=== PATIENT | female | born 1955 | race Caucasian/White ===

== ENCOUNTER 2019-12-30 10:08 | Emergency (ER) | payer OTHER, SELFPAY ==
--- NOTE | ~2019-12-30 | CT_ITS ---
EXAMINATION: CT brain wo con EXAM DATE: 12/30/2019 12:32 INDICATION: Numbness, weakness, lightheadedness. TECHNIQUE: Spiral CT of the head was performed without contrast. Axial, coronal and sagittal images were reviewed. The dose-length product (DLP) for this examination was 605.33 mGy-cm. The exposure w as tailored according to patient size, and iterative reconstruction (ASIR) was used as additional dos e reduction technique. There is no prior study for comparison. FINDINGS: There is no acute intraparenchymal hemorrhage. No evidence of intraparenchymal brain mass lesion. No evidence of acute infarction. Please note that initial head CT has limited sensitivity f or small or acute infarctions. There is mild periventricular and subcortical hypodensity, nonspecific but probably related to small vessel ischemic disease. There is mild prominence of the sulci and v entricles related to cerebral atrophy. There is intracranial carotid arteriosclerosis. There are n o extra-axial collections. There is no mass effect or midline shift. The orbits are unremarkable. Soft tissue is unremarkable. The visualized sinuses and mastoid air cells are well aerated. IMPRESSION: 1. No acute intracranial findings. 2. Chronic age related findings. Reviewed, dictated and finalized at location A. NEERING INSPECTOR
[2019-12-30 10:32] VITALS: BP 108/63; PULSE 76; RESP 18; TEMP 36.6; O2SAT 100
--- NOTE | 2019-12-30 12:20 | ECG_ITS ---
Measurements Intervals [place] Rate: 68 P: 33 WA: 179 QRS: -13 QRSD: 92 T: 22 QT: 421 QTc: 450 Interpretive Statements SINUS RHYTHM CANNOT RULE OUT SEPTAL INFARCT, AGE INDETERMINATE BASELINE ARTIFACT- I, II, III, AVR, AVL, AVF, V1-V2 ABNORMAL ECG Electronically Signed On 12-30-2019 14:48:08 WHEEL BRAIDER by Catrachito Calix D.O.
--- NOTE | 2019-12-30 12:31 | ED.DIZZY ---
HPI - Dizziness General Chief Complaint: Dizziness Stated Complaint: Weak, abd pain Time Seen by Provider: 12/30/19 12:18 Source: patient Mode of arrival: ambulatory Limitations: no limitations History of Present Illness HPI Narrative: The pt is a 64 y/o female who presents to the ED c/o dizziness onset today. Pt states that she was eating with her son when she went to bathroom. Then, when she sat down, she suddenly began to experience lower ABD cramping pain, diaphoresis, and feeling warm along with her dizziness. She notes that she had a similar episode a few years ago after having her medications completely changed. Pt states that her diaphoresis and feeling warm are resolved. Pt notes that her dizziness and ABD pain have improved, but her ABD pain has migrated to the epigastric ABD. Pt reports diarrhea, but denies fever, CP, hematuria, and dysuria. Pt notes that she had her Amlodipine cut in half by her PCP on 12/27/19, and had her water pill doubled. MD elicited complaint: dizziness Timing: sudden onset Severity: similar to previous episodes Context: change in medication (Doubled water pill, cut Amlodipine) History of similar symptoms: Yes Associated symptoms: diaphoresis (Resolved) and other (ABD pain (Lower cramping, now epigastric), Feeling warm (Resolved), Diarrhea) Related Data Allergies Allergy/AdvReac Type Severity Reaction Status Date / Time No Known Allergies Allergy Verified 12/30/19 10:34 Review of Systems Review of Systems: All systems reviewed & are unremarkable except as noted in HPI and below Constitutional: Constitutional: Reports excessive sweating (Resolved), Denies fever(s) and Reports other (Feeling warm (Resolved)) Cardiovascular: Cardiovascular: Denies chest pain Gastrointestinal: Gastrointestinal: Reports abdominal pain (Lower cramping initially, now epigastric) and Reports diarrhea Genitourinary: Genitourinary: Denies hematuria and Denies dysuria Neurologic: Reports dizziness PMFSH Past Medical History Medical History (Updated 12/30/19 @ 14:23 by Paco Mccoy MD) Arthritis Endometrial cancer Gall bladder disease GERD (gastroesophageal reflux disease) HLD (hyperlipidemia) HTN (hypertension) Rectal polyp Surgical History Surgical History (Updated 12/30/19 @ 13:05 by Madhav Lang) H/O hand surgery Reconstruction of fingers on the left hand H/O thumb surgery Right thumb H/O: hysterectomy History of cholecystectomy Social History Social History (Updated 12/30/19 @ 13:05 by Madhav Lang) Smoking status: Never smoker Gender identity (if verbalized by the patient): Female Exam Const: General: cooperative, healthy appearing, comfortable, no acute distress, well developed, alert and awake; No confusion Orientation/consciousness: oriented to person, oriented to place, oriented to time, patient oriented x3 and No confusion Limitations: no limitations Resp: Effort & Inspection: normal respiratory effort, able to speak in complete sentences, no respiratory distress and not tachypneic Auscultation: clear to auscultation bilaterally, no crackles, no rales, no rhonchi and no wheezes Cardio: Rate: regular rate Rhythm: regular rhythm GI: Inspection: normal to inspection GI Palp: No abdominal tenderness, Yes Soft to palpation, No Tenderness to palpation present (GI), No Guarding due to palpation present (GI), No Rigid due to palpation and No Rebound tenderness present Auscultation: normal bowel sounds Skin: General skin exam: normal color, no rashes or lesions noted, elasticity normal and turgor normal Neuro: General: oriented to person, oriented to place, oriented to time, patient oriented x3, moves all extremities and no focal motor deficits Extrem: General: normal to inspection, full ROM and capillary refill normal Psych: Appearance: grossly normal and well kempt Mental Status: mental status grossly normal Speech and movement: Normal speech and movement presen
[2019-12-30 12:42] LABS: Basophils Absolute Auto 0.1 K/mm3 (0.0-0.1); Basophils Percent Auto 0.5 % (0.2-1.2); Eosinophils Absolute Auto 0.1 K/mm3 (0-0.3); Eosinophils Percent Auto 0.7 % (0-4.4); Hematocrit 42.9 % (37.0-47.0); Immature Granulocyte Absolute 0.04 K/mm3 (0.00-0.031); Immature Granulocyte Percent A 0.4 % (0-0.5); Lymphocytes Absolute Auto 1.06 K/mm3 (0.9-3.2); Lymphocytes Percent Auto 10.1 % (18.3-44.2); Mean Corpuscular HGB Conc 32.6 g/dl (32-36); Mean Corpuscular Hemoglobin 29.7 pg (26-34); Mean Corpuscular Volume 90.9 fl (80-100); Mean Platelet Volume 11.4 fl (7.4-10.4); Monocytes Absolute Auto 0.6 K/mm3 (0.1-0.6); Monocytes Percent Auto 5.6 % (2.6-8.5); Neutrophils Absolute Auto 8.7 K/mm3 (1.3-6.7); Neutrophils Percent Auto 82.7 % (45.5-73.1); Platelet Count Result 262 k/mm3 (150-375); Red Blood Count 4.72 M/mm3 (4.2-5.4); White Blood Count 10.5 K/mm3 (4.5-10.0)
[2019-12-30] MEDS: SODIUM CHLORIDE 0.9% IV 1,000 ML 999 ML IV CONT (12:46)
[2019-12-30 12:52] LABS: INR 0.9; Prothrombin Time 11.8 Seconds (11.1-14.7)
[2019-12-30 12:53] LABS: Partial Thromboplastin Time 28.6 SECONDS (22.3-36.8)
[2019-12-30 13:26] LABS: Blood Urea Nitrogen 17 mg/dL (7-17); Calcium 8.7 mg/dL (8.4-10.2); Carbon Dioxide 29 mmol/L (22-30); Chloride 102 mmol/L (98-107); Estimated CRCL calculation 51 ml/min; Estimated Glomerular Filt Rate 56; Glucose 128 mg/dL (65-105); Sodium 139 mmol/L (137-145)
--- NOTE | 2019-12-30 13:28 | PC.NURSE ---
Pt is unable to give urine sample at this time.
[2019-12-30 13:38] LABS: Troponin I < 0.012 ng/mL (0.000-0.034)
[2019-12-30 13:54] VITALS: BP 126/74; PULSE 63; RESP 19; O2SAT 99
--- NOTE | 2020-01-05 13:41 | PC.NURSE ---
LATE ENTRY This note is being entered to document information to the patient's record. The following information was omitted on [01/05/20], by [Yesy Lozoya Rn This pt received 1000mls of fluid that was stopped at 1320. ].
== END 2019-12-30 14:39 | disposition home or self-care (01) ==
PROVIDERS: Emergency Provider Emergency Medicine
DX: R42 Dizziness and giddiness (principal); R19.7 Diarrhea, unspecified; M19.90 Unspecified osteoarthritis, unspecified site; K21.9 Gastro-esophageal reflux disease without esophagitis; E78.5 Hyperlipidemia, unspecified; I10 Essential (primary) hypertension; Z87.19 Personal history of other diseases of the digestive system; R94.31 Abnormal electrocardiogram [ECG] [EKG]
CPT/HCPCS: 36415; 70450; 80048; 84484; 85025; 85610; 85730; 93005; 96360; 99284; J7030

== ENCOUNTER → 2020-12-06 12:45 | Outpatient (CLI) | payer MEDICARE, SELFPAY ==
--- NOTE | ~2020-12-06 | MM_ITS ---
EXAMINATION: MM screening [facility] w [facility] HISTORY: Screening TECHNIQUE: Craniocaudal and mediolateral oblique 3-D tomosynthesis images were obtained and synthetic 2-D images were generated. CAD analysis was submitted and interpreted. COMPARISON: Comparison to multiple prior studies sequentially, with oldest reviewed study dated 02/22. BREAST PARENCHYMAL COMPOSITION: The breasts are heterogenously dense, which may obscure small masses. FINDINGS: There is no evidence of suspicious mass, calcification, or architectural distortion to sugg est malignancy in either breast. There has been no suspicious interval change. IMPRESSION: 1. No mammographic evidence of malignancy. 2. Recommend routine screening mammography in one year. BI-RADS Category 1: Negative Reviewed, dictated and finalized at location A. CAL OFFICE REPRESENTATIVE
== END ==
PROVIDERS: PCP Physician Assistant; Visit Provider Physician Assistant
DX: Z12.31 Encounter for screening mammogram for malignant neoplasm of breast (principal)
CPT/HCPCS: 77063; 77067

== ENCOUNTER → 2021-02-26 10:56 | Outpatient (CLI) | payer MEDICARE, SELFPAY ==
--- NOTE | ~2021-02-26 | XR_ITS ---
XR abdomen/kub 1V 02/26/2021 11:34 INDICATION: Right kidney disease. Hypertension. Proteinuria. TECHNIQUE: KUB COMPARISON: CT dated 08/25/2014 FINDINGS: Bowel gas pattern is normal. Large amount of retained fecal material throughout the colon. There are surgical changes of the abdomen and pelvis. There is no evidence of free air, mass, organom egaly, ascites or obstruction. No abnormal calculi are seen. The bones appear intact. Mild dextrosc oliosis of the lumbar spine. There are cholecystectomy clips. IMPRESSION: 1: No acute abdominal abnormality identified. Reviewed, dictated and finalized at location A.
--- NOTE | ~2021-02-26 | DEXA_ITS ---
Bone Density Report Name: Dominique Mcgrath Age: 65 Sex: Female Ethnicity: White Date of : 1955 Indication: postmenopausal; screening for osteoporosis; hysterectomy; Referring Provider: Karlo, Apolinar Deng Study: Bone densitometry was performed. Exam Date: February 26, 2021 Accession number: [id number] Bone Density: Region BMD T-score Z-score Classification AP Spine (L1-L4) 1.060 0.1 1.9 Normal Femoral Neck (Left) 0.665 -1.7 -0.1 Osteopenia Total Hip (Left) 0.849 -0.8 0.5 Normal Femoral Neck (Right) 0.620 -2.1 -0.5 Osteopenia Total Hip (Right) 0.755 -1.5 -0.3 Osteopenia Total Hip Mean 0.802 -1.2 0.1 Osteopenia World Health Organization criteria for BMD impression classify patients as: Normal (T-score at or above -1.0), Osteopenia (T-score between -1.0 and -2.5), or Osteoporosis (T-score at or below -2.5). Previous Exams: Region Exam Age BMD T-score BMD Change BMD Change Date g/cm2 vs Baseline vs Previous AP Spine(L1-L4) 02/26/2021 65 1.060 0.1 -0.097* -0.060* 09/20/2018 63 1.120 0.7 -0.037* -0.037* 02/20/2010 54 1.158 1.0 Total Hip(Left) 02/26/2021 65 0.849 -0.8 -0.127* -0.039* 09/20/2018 63 0.888 -0.4 -0.087* -0.087* 02/20/2010 54 0.976 0.3 Total Hip(Right) 02/26/2021 65 0.755 -1.5 -0.175* -0.061* 09/20/2018 63 0.816 -1.0 -0.114* -0.114* 02/20/2010 54 0.931 -0.1 *Denotes significance at 95% confidence level, LSC for AP Spine = 0.022 g/cm2, LSC for Total Hip = 0.027 g/cm2 Clinical Information Provided by Patient: Has used the following medications: Vitamin D Has the following medical conditions: Hysterectomy Patient maximum height was 68 Menopause Age: 54 Does not regularly consume dairy products Drinks caffeinated beverages Onset of menses at age 13 Number of children 4 Impression: The patient has low bone mass, based on the Right Femoral Neck T-score. The BMD for the AP Spine(L1-L4) decreased, changing by -0.060 since the last DXA exam. The BMD for the Total Hip(Left) decreased, changing by -0.039 since the last DXA exam. The BMD for the Total Hip(Right) decreased, changing by -0.061 since the last DXA exam. Discussion: BONE DENSITY IS LOW AT ONE OR MORE SKELETAL SITES. This patient's lowest T-score is low at one or more skeletal sites. It meets the World Health Organization's (WHO) criteria for ?low bone mass? (T-score between -1.0 and -2.5). The patient's 10-year risk of fracture as calculated by [facility]X is less than the threshold where pharm
== END ==
PROVIDERS: PCP Physician Assistant; Visit Provider Internal Medicine Nephrology
DX: Z78.0 Asymptomatic menopausal state (principal); I12.9 Hypertensive chronic kidney disease with stage 1 through stage 4 chronic kidney disease, or unspecified chronic kidney disease; N18.2 Chronic kidney disease, stage 2 (mild); R80.9 Proteinuria, unspecified; E78.5 Hyperlipidemia, unspecified; R31.9 Hematuria, unspecified; E21.0 Primary hyperparathyroidism; M85.852 Other specified disorders of bone density and structure, left thigh; M85.851 Other specified disorders of bone density and structure, right thigh
CPT/HCPCS: 74018; 77080

== ENCOUNTER → 2022-01-22 13:48 | Outpatient (CLI) | payer MEDICARE, SELFPAY ==
--- NOTE | ~2022-01-22 | MM_ITS ---
EXAMINATION: MM screening [facility] BI w [facility] HISTORY: Screening mammogram TECHNIQUE: Craniocaudal and mediolateral oblique 3-D tomosynthesis images were obtained and synthetic 2-D images were generated. CAD analysis was submitted and interpreted. COMPARISON: 12/06/2020, 10/01/2019, 09/29/2018 BREAST PARENCHYMAL COMPOSITION: The breasts are heterogeneously dense, which may obscure small masses . FINDINGS: There is no suspicious mass, calcification, or architectural distortion to suggest malignan cy in either breast. There has been no suspicious interval change. IMPRESSION: 1. No mammographic evidence of malignancy. 2. Recommend routine screening mammography in one year. BI-RADS Category 1: Negative Reviewed, dictated and finalized at location A.
== END ==
PROVIDERS: PCP Physician Assistant; Visit Provider Physician Assistant
DX: Z12.31 Encounter for screening mammogram for malignant neoplasm of breast (principal)
CPT/HCPCS: 77063; 77067

== ENCOUNTER → 2022-03-04 10:05 | Outpatient (CLI) | payer MEDICARE, SELFPAY ==
--- NOTE | ~2022-03-04 | XR_ITS ---
EXAMINATION: XR hip LT min 2V INDICATION: Left hip pain TECHNIQUE: Two views of the left hip are obtained. COMPARISON: None available FINDINGS: Bone alignment is normal. There is no fracture. The soft tissues are unremarkable. Surgical clips are noted in the abdomen and pelvis. Osteitis pubis is noted. IMPRESSION: 1. No acute osseous abnormality. Reviewed, dictated and finalized at location F.
--- NOTE | ~2022-03-04 | XR_ITS ---
XR lumbar spine 2-3V DATE: 03/04/2022 10:55 INDICATION: Lumbar radiculopathy TECHNIQUE: AP, lateral and coned lateral lumbosacral views COMPARISON: None FINDINGS: There is diffuse osteopenia. There is mild dextroscoliosis. No recent fracture or dislocation or bone destruction. The lumbar pedicles are intact. There is degenerative change at the apophyseal joints with associated grade 1 anterolisthesis at L4-5 . There is mild to moderate degenerative disc disease of the lumbar spine. The sacroiliac joints are normal. Status post cholecystectomy. Surgical clips in the right lower abdomen IMPRESSION: Diffuse osteopenia Dextroscoliosis Grade 1 anterolisthesis at L4-5 Mild to moderate degenerative disc disease at L4-5 Reviewed, dictated and finalized at location A.
== END ==
PROVIDERS: PCP Physician Assistant; Visit Provider Physician Assistant
DX: M25.552 Pain in left hip (principal); M85.88 Other specified disorders of bone density and structure, other site; M51.36 Other intervertebral disc degeneration, lumbar region
CPT/HCPCS: 72100; 73502

== ENCOUNTER → 2022-04-08 10:19 | Outpatient (CLI) | payer MEDICARE, SELFPAY ==
--- NOTE | ~2022-04-08 | XR_ITS ---
EXAMINATION: XR abdomen obstructive series DATE: 04/08/2022 11:13 INDICATION: Chronic kidney disease, stage II TECHNIQUE: Upright, decubitus, and supine views of the abdomen were obtained. COMPARISON: 02/26/2021 FINDINGS: Surgical clips are noted in the lower abdomen and pelvis. A moderate volume of colonic stoo l is present. There are no dilated loops of bowel. No free intraperitoneal gas is identified. Surgica l clips in the right upper quadrant are likely from prior cholecystectomy. The visualized lung bases are clear. IMPRESSION: 1. Nonobstructive bowel gas pattern. 2. Constipation. Reviewed, dictated and finalized at location F.
--- NOTE | ~2022-04-08 | DEXA_ITS ---
Bone Density Report Name: JADA JUAREZ Age: 67 Sex: Female Ethnicity: White Date of : 1955 Indication: osteopenia; hyperparathyroidism; hysterectomy; postmenopausal Referring Provider: Karlo, Apolinar Deng Study: Bone densitometry was performed. Exam Date: April 08, 2022 Accession number: [id number] Bone Density: Region BMD T-score Z-score Classification AP Spine (L1-L4) 1.068 0.2 2.1 Normal Femoral Neck (Left) 0.663 -1.7 -0.1 Osteopenia Total Hip (Left) 0.814 -1.1 0.3 Osteopenia Femoral Neck (Right) 0.596 -2.3 -0.7 Osteopenia Total Hip (Right) 0.734 -1.7 -0.4 Osteopenia Total Hip Mean 0.774 -1.4 -0.1 Osteopenia World Health Organization criteria for BMD impression classify patients as: Normal (T-score at or above -1.0), Osteopenia (T-score between -1.0 and -2.5), or Osteoporosis (T-score at or below -2.5). Previous Exams: Region Exam Age BMD T-score BMD Change BMD Change Date g/cm2 vs Baseline vs Previous AP Spine(L1-L4) 04/08/2022 67 1.068 0.2 -0.090* 0.008 02/26/2021 65 1.060 0.1 -0.097* -0.060* 09/20/2018 63 1.120 0.7 -0.037* -0.037* 02/20/2010 54 1.158 1.0 Total Hip(Left) 04/08/2022 67 0.814 -1.1 -0.162* -0.035* 02/26/2021 65 0.849 -0.8 -0.127* -0.039* 09/20/2018 63 0.888 -0.4 -0.087* -0.087* 02/20/2010 54 0.976 0.3 Total Hip(Right) 04/08/2022 67 0.734 -1.7 -0.197* -0.022 02/26/2021 65 0.755 -1.5 -0.175* -0.061* 09/20/2018 63 0.816 -1.0 -0.114* -0.114* 02/20/2010 54 0.931 -0.1 *Denotes significance at 95% confidence level, LSC for AP Spine = 0.022 g/cm2, LSC for Total Hip = 0.027 g/cm2 Clinical Information Provided by Patient: Has used the following medications: Vitamin D Has the following medical conditions: Hyperparathyroidism, Hysterectomy Patient maximum height was 68 Menopause Age: 54 Does not regularly consume dairy products Drinks caffeinated beverages Onset of menses at age 13 Number of children 4 Impression: The patient has low bone mass, based on the Right Femoral Neck T-score. The BMD for the Total Hip(Left) decreased, changing by -0.035 since the last DXA exam. Discussion: BONE DENSITY IS LOW AT ONE OR MORE SKELETAL SITES. This patient's lowest T-score is low at one or more skeletal sites. It meets the World Health Organization's (WHO) criteria for ?low bone mass? (T-score between -1.0 and -2.5). The patient's 10-year risk of fracture as calculated by
== END ==
PROVIDERS: PCP Physician Assistant; Visit Provider Internal Medicine Nephrology
DX: N18.2 Chronic kidney disease, stage 2 (mild) (principal); E21.0 Primary hyperparathyroidism; E78.00 Pure hypercholesterolemia, unspecified; K59.00 Constipation, unspecified; M85.852 Other specified disorders of bone density and structure, left thigh; M85.851 Other specified disorders of bone density and structure, right thigh
CPT/HCPCS: 74019; 77080

== ENCOUNTER → 2023-04-09 09:43 | Outpatient (CLI) | payer MEDICARE, SELFPAY ==
--- NOTE | ~2023-04-09 | XR_ITS ---
Supine and left lateral decubitus views of the abdomen Clinical history: Chronic kidney disease Findings: Bowel gas pattern is nonspecific. No evidence for obstruction or free air. Cholecystectomy clips noted. Pelvic surgical clips noted, unchanged. No abnormal mass lesion or calcification is seen . Osseous structures are intact. Impression: No significant abnormality is seen. Reviewed, dictated and finalized at [facility]. Impression: No significant abnormality is seen.
--- NOTE | ~2023-04-09 | DEXA_ITS ---
Bone Density Report Name: JADA JUAREZ Age: 68 Sex: Female Ethnicity: White Date of : 1955 Indication: osteopenia; monitoring treatment; hyperparathyroidism; hysterectomy; postmenopausal Referring Provider: Karlo, Apolinar Deng Study: Bone densitometry was performed. Exam Date: April 09, 2023 Accession number: [id number] Bone Density: Region BMD T-score Z-score Classification AP Spine (L1-L4) 1.166 1.1 3.1 Normal Femoral Neck (Left) 0.666 -1.6 0.0 Osteopenia Total Hip (Left) 0.850 -0.8 0.6 Normal Femoral Neck (Right) 0.633 -1.9 -0.3 Osteopenia Total Hip (Right) 0.763 -1.5 -0.1 Osteopenia Total Hip Mean 0.807 -1.2 0.3 Osteopenia World Health Organization criteria for BMD impression classify patients as: Normal (T-score at or above -1.0), Osteopenia (T-score between -1.0 and -2.5), or Osteoporosis (T-score at or below -2.5). Previous Exams: Region Exam Age BMD T-score BMD Change BMD Change Date g/cm2 vs Baseline vs Previous AP Spine(L1-L4) 04/09/2023 68 1.166 1.1 0.009 0.098* 04/08/2022 67 1.068 0.2 -0.090* 0.008 02/26/2021 65 1.060 0.1 -0.097* -0.060* 09/20/2018 63 1.120 0.7 -0.037* -0.037* 02/20/2010 54 1.158 1.0 Total Hip(Left) 04/09/2023 68 0.850 -0.8 -0.125* 0.037* 04/08/2022 67 0.814 -1.1 -0.162* -0.035* 02/26/2021 65 0.849 -0.8 -0.127* -0.039* 09/20/2018 63 0.888 -0.4 -0.087* -0.087* 02/20/2010 54 0.976 0.3 Total Hip(Right) 04/09/2023 68 0.763 -1.5 -0.168* 0.029* 04/08/2022 67 0.734 -1.7 -0.197* -0.022 02/26/2021 65 0.755 -1.5 -0.175* -0.061* 09/20/2018 63 0.816 -1.0 -0.114* -0.114* 02/20/2010 54 0.931 -0.1 *Denotes significance at 95% confidence level, LSC for AP Spine = 0.022 g/cm2, LSC for Total Hip = 0.027 g/cm2 Clinical Information Provided by Patient: Is being treated for osteoporosis Has used the following medications: Fosamax (i.e. alendronate), Vitamin D Has the following medical conditions: Hyperparathyroidism, Hysterectomy Patient maximum height was 68 Menopause Age: 54 No regular weight bearing exercise Does not regularly consume dairy products Drinks caffeinated beverages Onset of menses at age 13 Number of children 4 Impression: The patient has low bone mass, based on the Right Femoral Neck T-score. No significant bone loss was observed. Discussion: PATIENT UNDER ALYSSA
== END ==
PROVIDERS: PCP Physician Assistant; Visit Provider Internal Medicine Nephrology
DX: N18.2 Chronic kidney disease, stage 2 (mild) (principal); E21.0 Primary hyperparathyroidism; E78.00 Pure hypercholesterolemia, unspecified; M85.852 Other specified disorders of bone density and structure, left thigh; M85.851 Other specified disorders of bone density and structure, right thigh
CPT/HCPCS: 74019; 77080

== ENCOUNTER → 2023-04-28 12:17 | Outpatient (CLI) | payer MEDICARE, SELFPAY ==
--- NOTE | ~2023-04-28 | MM_ITS ---
EXAMINATION: MM screening [facility] HISTORY: Screening mammogram TECHNIQUE: Craniocaudal and mediolateral oblique 3-D tomosynthesis images were obtained and synthetic 2-D images were generated. CAD analysis was submitted and interpreted. COMPARISON: 01/22/2022, 12/06/2020, 10/01/2019 bilateral screening mammogram examinations BREAST PARENCHYMAL COMPOSITION: The breasts are heterogeneously dense, which may obscure small masses . FINDINGS: There is no evidence of suspicious mass, calcification, or architectural distortion to sugg est malignancy in either breast. There has been no suspicious interval change. IMPRESSION: 1. No mammographic evidence of malignancy. 2. Recommend routine screening mammography in one year. BI-RADS Category 1: Negative Reviewed, dictated and finalized at location C.
== END ==
PROVIDERS: PCP Physician Assistant; Visit Provider Physician Assistant
DX: Z12.31 Encounter for screening mammogram for malignant neoplasm of breast (principal)
CPT/HCPCS: 77063; 77067

== ENCOUNTER 2024-05-26 08:38 | Outpatient (CLI) | payer MEDICARE, BC, SELFPAY ==
--- NOTE | ~2024-05-26 | XR_ITS ---
Left foot Technique: AP, oblique, and lateral views were obtained. Clinical History: Disorder of bone Findings: No acute fracture or dislocation is seen. Large os trigonum noted. Small plantar calcaneal spur present. Osseous alignment is anatomic. Joint spaces are preserved without erosive or degenerati ve change. Soft tissues are unremarkable. Impression: No acute abnormality. Chronic findings, as above. Reviewed, dictated and finalized at location M. Impression: No acute abnormality. Chronic findings, as above.
--- NOTE | ~2024-05-26 | XR_ITS ---
Left ankle Technique: AP, oblique, and lateral views were obtained. Clinical History: Disorder of bone Findings: No acute fracture or dislocation is seen. Larger os trigonum present. Small plantar calcane al spur present. Osseous alignment is anatomic. Ankle mortise and other visualized joint spaces are p reserved. Soft tissues are otherwise unremarkable. Impression: No acute abnormality. Chronic findings, as above. Reviewed, dictated and finalized at location M. Impression: No acute abnormality. Chronic findings, as above.
== END 2024-05-26 08:39 ==
PROVIDERS: PCP Physician Assistant; Visit Provider Physician Assistant
DX: M89.9 Disorder of bone, unspecified (principal)
CPT/HCPCS: 73610; 73630

== ENCOUNTER 2024-08-05 09:39 | Outpatient (CLI) | payer MEDICARE, BC, SELFPAY ==
--- NOTE | ~2024-08-05 | XR_ITS ---
3 VIEWS LUMBAR SPINE Ordering provider: Jaja Hays, PAMoses History: . Lumbar radiculopathy . Comparison: March 04, 2022 FINDINGS: VERTEBRAL BODIES:Minimal anterolisthesis at the level of L4-L5. No visible fracture or subluxation. Degenerative changes. Dextroscoliosis. DISK SPACES: Narrowing of the disc L4-L5. Facet joint disease at multiple levels SOFT TISSUES: Normal. Aortic calcification. IMPRESSION: No acute osseous abnormality lumbar spine. Minimal anterolisthesis at the level of L4-L5 with narrowing of the disc space L4-L5.. Reviewed, dictated and finalized at location A.
--- NOTE | ~2024-08-05 | XR_ITS ---
XR hip LT min 2V 08/05/2024 10:06 Indication: Left hip pain Procedure: 2 views left hip Comparison: 03/04/2022 Findings: There is mild osteoarthritis of the left hip. No fracture, subluxation or dislocation. Surr ounding osseous structures are unremarkable. No soft tissue abnormality. Impression: 1: Mild osteoarthritis of the left hip. Reviewed, dictated and finalized at location B. Impression: 1: Mild osteoarthritis of the left hip.
== END 2024-08-05 09:40 | disposition home or self-care (01) ==
LOC: MICIMG 09:42
PROVIDERS: PCP Physician Assistant; Visit Provider Physician Assistant
DX: M16.12 Unilateral primary osteoarthritis, left hip (principal); M43.16 Spondylolisthesis, lumbar region; M48.061 Spinal stenosis, lumbar region without neurogenic claudication
CPT/HCPCS: 72100; 73502

== ENCOUNTER 2024-08-25 09:24 | Outpatient (CLI) | payer MEDICARE, BC, SELFPAY ==
--- NOTE | ~2024-08-25 | MM_ITS ---
EXAMINATION: MM screening [facility] BI w [facility] HISTORY: Screening TECHNIQUE: Craniocaudal and mediolateral oblique 3-D tomosynthesis images were obtained and synthetic 2-D images were generated. CAD analysis was submitted and interpreted. COMPARISON: Comparison to multiple prior studies sequentially, with oldest reviewed study dated 08/09. BREAST PARENCHYMAL COMPOSITION: Dense: The breasts are heterogeneously dense, which may obscure small masses FINDINGS: There is no evidence of suspicious mass, calcification, or architectural distortion to sugg est malignancy in either breast. There has been no suspicious interval change. IMPRESSION: 1. No mammographic evidence of malignancy. 2. Recommend routine screening mammography in one year. BI-RADS Category 1: Negative Reviewed, dictated and finalized at location B.
== END 2024-08-25 09:25 | disposition home or self-care (01) ==
PROVIDERS: PCP Physician Assistant; Visit Provider Physician Assistant
DX: Z12.31 Encounter for screening mammogram for malignant neoplasm of breast (principal)
CPT/HCPCS: 77063; 77067

== ENCOUNTER 2024-12-05 09:12 | Outpatient (CLI) | payer MEDICARE, SELFPAY ==
--- NOTE | ~2024-12-05 | MR_ITS ---
MRI of the lumbar spine Clinical History: Radiculopathy Technique: Axial T2-weighted images, and sagittal T1-weighted, T2-weighted, and T2 fat-sat images wer e acquired. Findings: No fracture seen. There is 5 mm anterolisthesis of L4 over L5. No suspicious bone marrow si gnal abnormality seen. At L1-L2, there is moderate degenerative disc narrowing. There is mild disc bulge with mild to modera te facet arthropathy. No central canal stenosis. There is mild left neural foraminal narrowing. Right neural foramen but are preserved. At L2-L3, there is moderate degenerative disc narrowing. There is diffuse disc bulge with severe face t arthropathy. No len central canal stenosis. There is mild left neural foraminal narrowing. Right neural foramen preserved. At L3-L4, there is mild degenerative disc narrowing. There is diffuse disc bulge with severe facet ar thropathy and minimal central canal stenosis. There is mild bilateral neural foraminal narrowing. At L4-L5, there is disc bulge/uncovering with severe facet arthropathy, resulting in severe spinal ca nal stenosis/thecal sac compression. There is moderate to severe right neural foraminal narrowing. Le ft neural foramen preserved. At L5-S1, there is mild disc bulge with moderate facet arthropathy. No len central canal stenosis. There is moderate right neural foraminal narrowing, and mild left neural foraminal narrowing. Paravertebral soft tissues are unremarkable. Impression: Severe degenerative spondylosis at L4-L5, with associated 5 mm anterolisthesis at this level. Moderate degenerative changes in the remainder of the lumbar spine. Reviewed, dictated and finalized at [facility]. LRY BENCH MOLDER Impression: Severe degenerative spondylosis at L4-L5, with associated 5 mm anterolisthesis at this level. Moderate degenerative changes in the remainder of the lumbar spine.
--- NOTE | ~2024-12-05 | MR_ITS ---
EXAMINATION: MR hip LT wo con DATE: 12/05/2024 10:08 INDICATION: Left hip pain TECHNIQUE: Magnetic resonance imaging (MRI) of the left hip was performed without intravenous contra st. Sequences included full-field axial PD-weighted FS FSE and T1-weighted FSE, coronal of the pelvis with PD-weighted FS FSE, small field of view of the left hip with axial PD-weighted FS FSE, sagitta l PD-weighted FS FSE and coronal PD weighted FS FSE. Additional radial T1-weighted FGR oriented ortho gonal to the acetabular rim were obtained for evaluation of the labrum. COMPARISON: None FINDINGS: Bones/labrum/cartilage: Mild lumbar levocurvature with mild to moderate spondylosis. There is a chronic right-sided superior endplate compression fracture at L3. Mild osteitis pubis with mild edema-like signal change at the ri ght pubic body. No fracture, avascular necrosis or pathologic marrow replacing process. There is mild osteoarthritis at the left hip with nonuniform joint space narrowing with partial thickness cartilag e loss involving with up to 50% joint space narrowing at the anterosuperior and posterior inferior as pect of the joint space. There is a tear of the left anterosuperior glenoid labrum with mild cystlike change along the immediately adjacent and superior rim of the left acetabulum. There is additional s mall tear at the superolateral left acetabular labrum. Similar mild osteoarthritis and tear of the ri ght acetabular labrum strongly suggestive but not diagnostically evaluated on the larger [id number] w imaging. Fluid: Symmetric physiologic amount of fluid within both hip joints. There is a small amount of ascites in t he deep pelvis. Soft tissues: There is asymmetric mild fatty atrophy of the left gluteus medius and minimus tendons. There is asymm etric proximal retraction of the myotendinous junction of the left radius medius tendon which is loca jarek 5 cm proximal to the greater trochanter insertion. This is consistent with partial tear of the di stal tendon. There is an enthesophyte at the greater trochanteric insertion of the left gluteus minim us tendon which along with the history of mild fatty atrophy suggests this represents sequela of a ch ronic partial tear. The iliopsoas,, rectus femoris and proximal hamstring tendons are normal. The curtis bruno is not identified and has likely been surgically resected. Limited evaluation of visceral organs of the pelvis is otherwise unremarkable. 1.4 cm Bartholin cyst at the left side of the introitus. No pathologically enlarged pelvic/inguinal lymphadenopathy. IMPRESSION: 1. Mild left hip osteoarthritis with associated labral tear. Similar findings are suggestive but not diagnostically evaluated the contralateral right hip on the large [id number] imaging. 2. 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 3. Mild lumbar levocurvature with mild to moderate spondylosis chronic mild L3 compression fracture. 4. Small amount of ascites in the deep pelvis. Reviewed, dictated and finalized at location B. [employer] IMPRESSION: 1. Mild left hip osteoarthritis with associated labral tear. Similar findings a re suggestive but not diagnostically evaluated the contralateral right hip on t he large [id number] imaging. 2. 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 3. Mild lumbar levocurvature with mild to moderate spondylosis chronic mild L3 compression fracture. 4. Small amount of ascites in the deep pelvis.
== END 2024-12-05 09:13 | disposition home or self-care (01) ==
LOC: MICIMG 09:14
PROVIDERS: PCP Orthopaedic Surgery; Visit Provider Orthopaedic Surgery
DX: M16.12 Unilateral primary osteoarthritis, left hip (principal); M47.896 Other spondylosis, lumbar region; M62.50 Muscle wasting and atrophy, not elsewhere classified, unspecified site; M43.8X6 Other specified deforming dorsopathies, lumbar region; M43.06 Spondylolysis, lumbar region; S32.030A Wedge compression fracture of third lumbar vertebra, initial encounter for closed fracture; R18.8 Other ascites; X58.XXXA Exposure to other specified factors, initial encounter
CPT/HCPCS: 72148; 73721